=== PATIENT | male | born 1980 | race Caucasian/White ===

== ENCOUNTER 2020-09-07 11:34 | Emergency (ER) | payer MEDICAID ==
[~2020-09-07] VITALS: Ht 160 cm; Wt 91.0 kg
[2020-09-07] MEDS ORDERED: SODIUM CHLORIDE 0.9% 1,000 ML IV ONE (12:15)
[2020-09-07 12:44] LABS: EOSINOPHILS % 0.4 % (0.0-5.0); HEMATOCRIT. 49.8 % (42.0-52.0); HEMOGLOBIN. 17.1 g/dL (14.0-18.0); LYMPHOCYTES % 16.1 % (20.0-50.0); MEAN CORPUSCULAR HEMOGLOBIN 29.1 pg (28.0-32.0); MEAN CORPUSCULAR VOLUME 84.7 fL (80.0-94.0); MONOCYTES % 6.1 % (2.0-8.0); NEUTROPHILS % 76.4 % (40.0-76.0); PLATELET 310 x1000/uL (130-400); RED BLOOD CELL COUNT 5.88 mill/uL (4.7-6.1); RED CELL DISTRIBUTION WIDTH 13.6 % (11.6-14.6)
[2020-09-07 12:51] LABS: CHLORIDE 103 mEq/L (98-107)
[2020-09-07 12:55] LABS: ETHANOL BLOOD < 10 mg/dL
[2020-09-07 16:25] LABS: *AMPHETAMINES SCREEN URINE NEGATIVE (NEGATIVE); *BARBITURATES SCREEN URINE NEGATIVE (NEGATIVE); *BENZODIAZEPINES SCREEN URINE NEGATIVE (NEGATIVE); *COCAINE SCREEN URINE NEGATIVE (NEGATIVE)
[2020-09-07 16:26] LABS: CANNABINOID URINE SCREEN NEGATIVE (NEGATIVE); METHADONE URINE SCREEN NEGATIVE (NEGATIVE); OPIATES URINE SCREEN NEGATIVE (NEGATIVE); PHENCYCLIDINE URINE SCREEN NEGATIVE (NEGATIVE)
[2020-09-07 16:30] VITALS: BP 122/78
== END 2020-09-07 16:35 | disposition home or self-care (01) ==
LOC: ER 11:34
DX: U07.1 COVID-19 (principal); R07.89 Other chest pain; R00.2 Palpitations
CPT/HCPCS: 36415; 71045; 80053; 80305; 80320; 83690; 83880; 84443; 84484; 85025; 93005; 96360; 99285; J7030; G0480

== ENCOUNTER 2020-09-27 11:22 | Emergency (ER) | payer MEDICAID ==
[~2020-09-27] VITALS: Ht 160 cm; Wt 85.0 kg
[2020-09-27 12:04] LABS: BASOPHILS % 0.6 % (0.0-2.0); EOSINOPHILS % 0.8 % (0.0-5.0); HEMATOCRIT. 46.4 % (42.0-52.0); HEMOGLOBIN. 15.8 g/dL (14.0-18.0); LYMPHOCYTES % 18.9 % (20.0-50.0); MEAN CORPUSCULAR HEMOGLOBIN 29.7 pg (28.0-32.0); MEAN CORPUSCULAR VOLUME 87.3 fL (80.0-94.0); MEAN PLATELET VOLUME 8.3 fl (7.4-10.4); MONOCYTES % 8.6 % (2.0-8.0); NEUTROPHILS % 71.1 % (40.0-76.0); PLATELET 158 x1000/uL (130-400); RED BLOOD CELL COUNT 5.32 mill/uL (4.7-6.1); RED CELL DISTRIBUTION WIDTH 13.8 % (11.6-14.6)
[2020-09-27 12:23] LABS: CHLORIDE 106 mEq/L (98-107)
[2020-09-27 12:52] LABS: BG BASE EXCESS 4.2 mmol/L (-2.0-2.0); BG CARBOXYHEMOGLOBIN 0.5 % (0.5-1.5); BG DEOXYHEMOGLOBIN 3.7 % (0.0-5.0); BG FRACTION INSPIRED OXYGEN 21; BG HCO3 ACT 29.1 mmol/L (22.0-26.0); BG METHEMOGLOBIN 0.2 % (0.0-1.5); BG OXYGEN SATURATION 96.3 % (92.0-98.5); BG OXYHEMOGLOBIN 95.6 % (94.0-97.0); BG PCO2 44.1 mmHg (35.0-45.0); BG PH 7.437 (7.350-7.450); BG PO2 78.9 mmHg (75.0-100.0); BG SAMPLE SITE RIGHT RADIAL; BG TOTAL HEMOGLOBIN 16.2 g/dL (12.0-18.0); BG VENT MODE ROOM AIR
[2020-09-27] MEDS ORDERED: IOHEXOL 350 MG/ML 200ML INFUS..BTL IV ONE (13:05)
[2020-09-27 14:13] VITALS: BP 105/72
== END 2020-09-27 14:40 | disposition home or self-care (01) ==
LOC: ER 11:37
DX: R07.89 Other chest pain (principal); Z86.19 Personal history of other infectious and parasitic diseases
CPT/HCPCS: 36415; 36600; 71045; 71275; 80053; 82375; 82805; 83880; 84484; 85025; 93005; 99285; Q9967

== ENCOUNTER 2021-08-18 14:48 | Emergency (ER) | payer MEDICAID ==
[~2021-08-18] VITALS: Ht 165.1 cm; Wt 91.0 kg
[2021-08-18] MEDS ORDERED: VISCOUS LIDOCAINE 2% 15 ML UDC PO STA (17:28)
[2021-08-18] MEDS ORDERED: MAGNESIUM/ALUMINUM HYDROXIDE/SIMETHICONE 30ML UDC PO STA (17:28)
[2021-08-18] MEDS ORDERED: ACETAMINOPHEN 325MG TABLET PO STA (17:28)
[2021-08-18 20:51] LABS: BASOPHILS % 0.8 % (0.0-2.0); EOSINOPHILS % 1.6 % (0.0-5.0); HEMOGLOBIN. 16.5 g/dL (14.0-18.0); LYMPHOCYTES % 31.3 % (20.0-50.0); MEAN CORPUSCULAR HEMOGLOBIN 29.4 pg (28.0-32.0); MEAN CORPUSCULAR VOLUME 85.5 fL (80.0-94.0); MEAN PLATELET VOLUME 7.8 fl (7.4-10.4); MONOCYTES % 7.5 % (2.0-8.0); NEUTROPHILS % 58.8 % (40.0-76.0); PLATELET 220 x1000/uL (130-400); RED BLOOD CELL COUNT 5.61 mill/uL (4.7-6.1); RED CELL DISTRIBUTION WIDTH 13.6 % (11.6-14.6)
[2021-08-18 20:58] LABS: CHLORIDE 104 mEq/L (98-107)
[2021-08-18] MEDS ORDERED: FAMO-135 MT (21:36)
[2021-08-18 22:19] VITALS: BP 132/78
== END 2021-08-18 22:22 | disposition home or self-care (01) ==
LOC: ER 14:48
DX: R10.13 Epigastric pain (principal)
CPT/HCPCS: 36415; 76700; 80053; 85025; 99284

== ENCOUNTER 2021-10-30 08:53 | Emergency (ER) | payer MEDICAID ==
[~2021-10-30] VITALS: Ht 165.1 cm; Wt 95.0 kg
[~2021-10-30 08:53] MED LIST: FAMO-135 MT
[2021-10-30] MEDS ORDERED: IBUPROFEN 600MG TABLET PO ONE (09:15)
[2021-10-30 10:37] VITALS: BP 127/75
== END 2021-10-30 10:38 | disposition home or self-care (01) ==
LOC: ER 08:53
DX: S93.402A Sprain of unspecified ligament of left ankle, initial encounter (principal); Z13.9 Encounter for screening, unspecified; W17.89XA Other fall from one level to another, initial encounter; Y93.89 Activity, other specified; Y92.89 Other specified places as the place of occurrence of the external cause; Y99.8 Other external cause status
CPT/HCPCS: 73610; 99283

== ENCOUNTER 2022-10-31 08:52 | Emergency (ER) | payer MEDICAID ==
[~2022-10-31] VITALS: Ht 167.6 cm; Wt 103.0 kg
[2022-10-31 09:04] VITALS: BP 148/91
[2022-10-31] MEDS ORDERED: KETOROLAC 60MG/2ML VIAL IM ONE (09:45)
[2022-10-31] MEDS ORDERED: DEXAMETHASONE 10 MG/ML VIAL IM ONE (09:45)
[2022-10-31] MEDS ORDERED: KETOROLAC 60MG/2ML VIAL IM SCH (11:30)
[2022-10-31] MEDS ORDERED: DEXAMETHASONE 10 MG/ML VIAL IM SCH (11:30)
[2022-10-31] MEDS ORDERED: IBUP-2029 MT (11:54)
== END 2022-10-31 12:35 | disposition home or self-care (01) ==
LOC: ER 08:52
DX: J02.9 Acute pharyngitis, unspecified (principal); M54.2 Cervicalgia
CPT/HCPCS: 70490; 96372; 99285; J1100; J1885; Z7610